=== PATIENT | female | born 1985 | race African-American/Black ===

== ENCOUNTER 2023-05-12 19:51 | Outpatient (REF) | payer OTHER, SELFPAY ==
[2023-05-18 15:08] LABS: Age Gdln ACOG Testing Note (.); HPV Aptima Negative (Negative); IGP, Aptima HPV, rfx 16/18,45 Note (.)
== END 2023-05-12 19:52 | disposition home or self-care (01) ==
LOC: LAB 19:51
PROVIDERS: Visit Provider Physician Assistant
DX: Z01.419 Encounter for gynecological examination (general) (routine) without abnormal findings (principal)
CPT/HCPCS: 87624; G0145

== ENCOUNTER 2024-05-17 18:57 | Outpatient (REF) | payer OTHER, SELFPAY ==
--- OUTSIDE RECORDS SUMMARY | 2024-05-17 19:00 | XMS_ITS | CCD ---
Author Organization [facility]iniSyn[facility] Care Team Providers Care Covered Button Maker Name Role Phone VITOR, DR MITCHELL Admitting Unavailable VITOR, DR MITCHELL Attending Unavailable VITOR, DR MITCHELL Primary Care Unavailable VITOR, DR MITCHELL Consulting Unavailable VITOR, DR MITCHELL Admitting Unavailable VITOR, DR MITCHELL Attending Unavailable VITOR, DR MITCHELL Primary Care Unavailable VITOR, DR MITCHELL Consulting Unavailable ZIEBER, DR ROLY Ramsay Consulting Unavailable VITOR, DR MITCHELL Admitting Unavailable VITOR, DR MITCHELL Attending Unavailable VITOR, DR MITCHELL Primary Care Unavailable VITOR, DR MITCHELL Consulting Unavailable VITOR, DR MITCHELL Admitting Unavailable VITOR, DR MITCHELL Attending Unavailable REQUEST, DR NONE LISTED Primary Care Unavaila ble VITOR, DR MITCHELL Admitting Unavailable VITOR, DR MITCHELL Attending Unavailable VITOR, DR MITCHELL Primary Care Unavailable VITOR, DR MITCHELL Consulting Unavailable VITOR, DR MITCHELL Admitting Unavailable VITOR, DR MITCHELL Attending Unavailable REQUEST, DR NONE LISTED Primary Care Unavaila ble VITOR, DR MITCHELL Consulting Unavailable AGUBOSIARMANDO Shen Consulting Unavailable BALWINDER CERVANTES Consulting Unavailable CHRISTIAN ARREOLA Attending Unavailable Silvio Nicholas Admitting Unavailable Silvio Nicholas Attending Unavailable Silvio Nicholas Primary Care Unavailable Cece Jean-Baptiste Primary Care Provide r Problems Active Problems Problem Classification Problem Date Documented Date Episodic/Chronic Anxiety disorders (1 source) Anxiety; Translations: [Anxiety disorder, unspecified] 03-22-2024 Chronic Immunizations and screening for infectious disease (2 sources) Encounter for screening for human papillomavirus (HPV); Translations: [Contact with and (suspected) exposure to infections with a predominantly sexual mode of transmission] Onset: 03-06-2022 Episodic Menstrual disorders (4 sources) Excessive and frequent menstruation with regular cycle; Translations: [EXCESS FREQ MENSTRUATION W/REG CYCL] Onset: 08-23-2021 Chronic Mood disorders (1 source) Depressive disorder; Translations: [Depression, unspecified depression type] 03-22-2024 Chronic Other female genital disorders (1 source) Other specified noninflammatory disorders of vagina; Translations: [OTH SPEC NONINFLAMMATORY D/O VAGINA] Onset: 03-06-2022 Episodic Other screening for suspected conditions (not mental disorders or infectious disease) (1 source) Abnormal findings on diagnostic imaging of other specified body structures; Translations: [ABNORML FIND DX IMG OTH BODY STRUC] Onset: 08-27-2021 Chronic Other screening for suspected conditions (not mental disorders or infectious disease) (4 sources) Encounter for screening for malignant neoplasm of cervix; Translations: [ENC SCREENING MALIG NEOPLASM CERV] Onset: 03-05-2022 Episodic Residual codes; unclassified (1 source) Insomnia; Translations: [Insomnia, unspecified] 03-22-2024 Episodic Unclassified (1 source) CONTACT W/AND (SUSP) EXPOS COVID-19; Translations: [CONTACT W/AND (SUSP) EXPOS COVID-19] Onset: 08-26-2021 Past or Other Problems Problem Classification Problem Date Documented Da te Episodic/Chronic Abdominal pain (5 sources) Pelvic and perineal pain; Translations: [PELVIC AND PERINEAL PAIN] Onset: 05-22-2021 Episodic Contraceptive and procreative management (1 source) Tubal ligation status; Translations: [TUBAL LIGATION STATUS] Onset: 08-27-2021 Episodic Mood disorders (1 source) Mood disorders Onset: 01-05-2023 01-05-2023 Other female genital disorders (1 source) Hypertrophy of uterus; Translations: [HYPERTROPHY OF UTERUS] Onset: 08-27-2021 Episodic Ovarian cyst (1 source) Unspecified ovarian cyst, left side; Translations: [UNSPECIFIED OVARIAN CYST LEFT SIDE] Onset: 05-30-2021 Episodic Unclassified (1 source) Onset: 01-05-2023 01-05-2023 Results Test Name Value Interpretation Reference Range Facility Lab - Toxicology Resultson 0 08-06-2023 Lab - Toxicology Results [id number]. [id number] Normal [facility] QuantiFERON-TB Gold Pluson 0 08-06-2023 QuantiFERON Incubation Incubation performed. Invalid Interpretation Code [facility] Comment on above: Result Comment: Perf ormed At: [address] [id number] Kg Rodriguez PhD Ph:[phone] Performed By: #### 2 [id number] #### [facility] (DEFAULT) [address] [place] [address] QuantiFERON-TB Gold Plus Negative Invalid Interpretation Code Negative [facility] Comment on above: Result Comment: No r esponse to M tuberculosis antigens detected. Infection with M tuberculosis is unlikely, but high risk individuals should be considered for additional testing (ATS/IDSA/CDC Clinical Practice Guidelines, 2017). The reference range is an Antigen minus Nil result of <0.35 IU/mL. Chemiluminescence immunoassay methodology Performed At: [address] [id number] Kg Rodriguez PhD Ph:[phone] Performed By: #### 2 [id number] #### [facility] (DEFAULT) [address] [place] [address] HBSab Qnt LCon 08-05-2023 Hep B Surf Ab Quant LC 117.2 mIU/mL Invalid Interpretation Code Immunity>9.[address] [facility] Comment on above: Result Comment: Stat us of Immunity Anti-HBs Level Inconsistent with Immunity 0.0 - 9.9 Consistent with Immunity >9.9 Performed At: [address] [id number] Kg Rodriguez PhD Ph:[phone] Performed By: #### 1 [id number] #### [facility] (DEFAULT) [address] [place] [address] Measles/Mumps/Rubella Immuni ty LCon 08-05-2023 Mumps Abs, IgG LC 61.5 AU/mL Invalid Interpretation Code Immune >10.[address] [facility] Comment on above: Result Comment: Nega tive <9.0 Equivocal 9.0 - 10.9 Positive >10.9 A positive result generally indicates past exposure to Mumps virus or previous vaccination. Performed At: [address] [id number] Kg Rodriguez PhD Ph:[phone] Performed By: #### 1 [id number] #### [facility] (DEFAULT) [address] [place] [address] Rubella Antibodies, IgG LC 1.88 index Invalid Interpretation Code Immune >0.[address] [facility] Comment on above: Result Comment: Non- immune <0.90 Equivocal 0.90 - 0.99 Immune >0.99 Performed By: #### 1 [id number] #### [facility] (DEFAULT) [address] [place] [address] Rubeola Ab, IgG, EIA LC 66.5 AU/mL Invalid Interpretation Code Immune >16.[address] [facility] Comment on above: Result Comment: Nega tive <13.5 Equivocal 13.5 - 16.4 Positive >16.4 Presence of antibodies to Rubeola is presumptive evidence of immunity except when acute infection is suspected. Performed By: #### 1 [id number] #### [facility] (DEFAULT) [address] [place] [address] Nicotine Metabolite, Urine L Con 08-05-2023 Cotinine LC Negative Invalid Interpretation Code Baeicz=[id number] [facility] Comment on above: Result Comment: Perf ormed At: [facility] OTS RTP [address] [facility], [place] [id number] Arie Rosales PhD Ph:[phone] Performed By: #### 1 [id number] #### [facility] (DEFAULT) [address] [place] [address] Triage Panel 10on 08-05-2023 Drug Screen Complete Collected Normal [facility] Comment on above: Performed By: #### 2 [id number] #### [facility] (DEFAULT) [address] [place] [address] Provider Orderson 08-04-2023 Provider Orders [id number] .[id number] [facility] PAP ACOG PANEL 2: 30 to 65on 03-12-2022 . . Normal [facility] Comment on above: Result Comment: Perf ormed at: BA Performed By: #### 4 [id number] #### [facility] [address] [address] [address] Nilay Blanton Age Gdln ACOG Testing 30-[address] [facility] Comment on above: Performed By: #### 4 [id number] #### [facility] [address] [address] [address] Nilay Blanton DIAGNOSIS: Comment Normal [facility] Comment on above: Result Comment: NEGA TIVE FOR INTRAEPITHELIAL LESION OR MALIGNANCY. Performed at: BA Performed By: #### 4 [id number] #### [facility] [address] [place] [address] Dr. Nilay Blanton HPV Aptima Negative Normal Negative [facility] Comment on above: Result Comment: This nucleic acid amplification test detects fourteen high-risk HPV types (16,18,31,33,35,39,45,51,52,56,58,59,66,68) without differentiation. Performed at: =G Performed By: #### 4 [id number] #### [facility] [address] [place] [address] Dr. Nilay Blanton Methodology: Comment Normal [facility] Comment on above: Result Comment: This liquid based ThinPrep(R) pap test was screened with the use of an image guided system. Performed at: WB Performed By: #### 4 [id number] #### [facility] [address] [address] [address] Nilay Blanton Note: Comment Normal [facility] Comment on above: Result Comment: The Pap smear is a screening test designed to aid in the detection of premalignant and malignant conditions of the uterine cervix. It is not a diagnostic procedure and should not be used as the sole means of detecting cervical cancer. Both false-positive and false-negative reports do occur. . Performed at: WB Performed By: #### 4 [id number] #### [facility] [address] [address] [address] Nilay Blanton Performed by: Comment Normal [facility] Comment on above: Result Comment: Clarissa Thompson, Respiratory Therapy Instructor (ASCP) Performed at: BA Performed By: #### 4 [id number] #### [facility] [address] [place] [address] Dr. Nilay Blanton Specimen adequacy: Comment Normal [facility] Comment on above: Result Comment: Sati sfactory for evaluation. No endocervical component is identified. Performed at: BA Performed By: #### 4 [id number] #### [facility] [address] [address] [address] Nilay Blanton CHLAMYDIA/GONOCOCCUS JONN ( AB/URINE/PAPon 03-07-2022 Chlamydia trachomatis, JONN Negative Normal Negative [facility] Comment on above: Performed By: #### C T/NGNA ####[facility] [id number] [address]Dr. Nilay Blanton Neisseria gonorrhoeae, JONN Negative Normal Negative [facility] Comment on above: Performed By: #### C T/NGNA ####[facility] [id number] [address]Dr. Nilay Blanton VAGINITIS/VAGINOSIS DNA PROB Erick 03-07-2022 Renetta species Negative Normal Negative [facility] Comment on above: Performed By: #### V AGINT #### [facility] [address] [place] [address] Dr. Nilay Blanton Gardnerella vaginalis Positive Abnormal Negative [facility] Comment on above: Performed By: #### V AGINT #### [facility] [address] [place] [address] Dr. Nilay Blanton Trichomonas vaginalis Negative Normal Negative [facility] Comment on above: Performed By: #### V AGINT #### [facility] [address] [place] [address] Dr. Nilay Blanton CBC AUTO DIFFon 08-23-2021 BASO # 0.0 103/ul Normal 0.0-0.[address] [facility] Comment on above: Performed By: #### C BC #### [facility] [address] [place] [address] Dr. Nilay Blanton Basophils/100 WBC (Bld) 0.4 % Normal 0.2-2.[address] [facility] Comment on above: Performed By: #### C BC #### [facility] [address] [place] [address] Dr. Nilay Blanton EO # 0.1 103/ul Normal 0.0-0.7 [facility] Comment on above: Performed By: #### C BC #### [facility] [address] [place] [address] Dr. Nilay Blanton Eosinophils/100 WBC (Bld) 2.3 % Normal 0.9-7.[address] [facility] Comment on above: Performed By: #### C BC #### [facility] [address] [place] [address] Dr. Nilay Blanton Erythrocyte distribution width (RBC) [Ratio] 14.1 % Normal 11.0-15.[address] [facility] Comment on above: Performed By: #### C BC #### [facility] [address] [place] [address] Dr. Nilay Blanton Hematocrit (Bld) [Volume fraction] 37.7 % Normal 36.0-48.[address] [facility] Comment on above: Performed By: #### C BC #### [facility] [address] [place] [address] Dr. Nilay Blanton Hemoglobin (Bld) [Mass/Vol] 12.1 g/dL Normal 12.0-16.[address] [facility] Comment on above: Performed By: #### C BC #### [facility] [address] [place] [address] Dr. Nilay Blanton IG # 0.01 10e3/ul Normal 0.00-0.[address] [facility] Comment on above: Performed By: #### C BC #### [facility] [address] [place] [address] Dr. Nilay Blanton IG % 0.2 % Normal 0.0-0.5 [facility] Comment on above: Performed By: #### C BC #### [facility] [address] [place] [address] Dr. Nilay Blanton LYMPH # 1.6 103/ul Normal 1.2-3.[address] [facility] Comment on above: Performed By: #### C BC #### [facility] [address] [place] [address] Dr. Nilay Blanton Lymphocytes/100 WBC (Bld) 31.0 % Normal 20.5-60.[address] [facility] Comment on above: Performed By: #### C BC #### [facility] [address] [place] [address] Dr. Nilay Blanton MANUAL DIFF REQ NO Normal [facility] Comment on above: Performed By: #### C BC #### [facility] [address] [place] [address] Dr. Nilay Blanton MCH (RBC) [Entitic mass] 26.9 pg Normal 26.7-34.[address] [facility] Comment on above: Performed By: #### C BC #### [facility] [address] [place] [address] Dr. Nilay Blanton MCHC (RBC) [Mass/Vol] 32.1 g/dL Normal 29.9-35.[address] [facility] Comment on above: Performed By: #### C BC #### [facility] [address] [place] [address] Dr. Nilay Blanton MCV (RBC) [Entitic vol] 84.0 fL Normal 81.0-99.[address] [facility] Comment on above: Performed By: #### C BC #### [facility] [address] [place] [address] Dr. Nilay Blanton MONO # 0.3 103/ul Normal 0.3-0.8 [facility] Comment on above: Performed By: #### C BC #### [facility] [address] [place] [address] Dr. Nilay Blanton Monocytes/100 WBC (Bld) 5.2 % Normal 1.7-12.[address] [facility] Comment on above: Performed By: #### C BC #### [facility] [address] [place] [address] Dr. Nilay Blanton NEUT # 3.2 103/ul Normal 1.4-6.5 [facility] Comment on above: Performed By: #### C BC #### [facility] [address] [place] [address] Dr. Nilay Blanton Neutrophils/100 WBC (Bld) 60.9 % Normal 43.0-75.[address] [facility] Comment on above: Performed By: #### C BC #### [facility] [address] [place] [address] Dr. Nilay Blanton Platelet mean volume (Bld) [Entitic vol] 11.4 fL Normal 9.5-13.5 [facility] Comment on above: Performed By: #### C BC #### [facility] [address] [place] [address] Dr. Nilay Blanton PLT 201 103/ul Normal 150-450 [facility] Comment on above: Performed By: #### C BC #### [facility] [address] [place] [address] Dr. Nilay Blanton RBC 4.49 106/ul Normal 4.20-5.[address] [facility] Comment on above: Performed By: #### C BC #### [facility] [address] [place] [address] Dr. Nilay Blanton WBC 5.2 103/ul Normal 4.0-11.[address] [facility] Comment on above: Performed By: #### C BC #### [facility] [address] [place] [address] Dr. Nilay Blanton PREG QUANT HCGon 08-23-2021 HCG QUANT <1 Normal [facility] Comment on above: Performed By: #### P REGQNT #### [facility] [address] [place] [address] Dr. Nilay Blanton HCG RANGE SEE BELOW Normal [facility] Comment on above: Result Comment: 5-50 0-1 WEEK 40-300 1-2 WEEKS 100-1,000 2-3 WEEKS 500-6,000 3-4 WEEKS 5,000-200,000 1-2 MONTHS 10,000-100,000 2-3 MONTHS 3,000-50,000 2ND TRIMESTER 1,000-50,000 3RD TRIMESTER Performed By: #### P REGQNT #### [facility] [address] [place], [place] [id number] Dr. Nilay Blanton Covid-19 PCR ([facility])on 07-31 SARS-CoV-2 (COVID-19) RNA JONN+probe Ql (Unsp spec) Not detected Normal NOT DETECTED [facility] Comment on above: Result Comment: When diagnostic testing is negative, the possibility of a false negative should be considered in the context of a patient's recent exposures and the presence of clinical signs and symptoms consistent with SARS-CoV-2. This test is not yet approved or cleared by the [place] FDA. When there are no FDA-approved or cleared tests available, and other criteria are met, FDA can make tests available under an emergency access mechanism called an Emergency Use Authorization (EUA). The EUA for this test is supported by the Rubber Attacher of Health and Human Service's declaration that circumstances exist to justify the emergency use of in vitro diagnostics for the detection and/or diagnosis of the virus that causes COVID-19. This EUA will remain in effect for the duration of the COVID-19 declaration justifying emergency of IVDs, unless it is terminated or revoked by the FDA (after which the test may no longer be used). Performed By: #### [facility] #### [facility] [address] [place] [address] [address] [address] Nilay Blanton US PELVIS AND TRANSVAGon US PELVIS AND TRANSVAG EXAMINATION: US PELVIS AND TRANSVAG HISTORY: Pelvic and perineal pain intermittent for several months COMPARISON: No relevant comparison available. TECHNIQUE: Transabdominal and transvaginal sonographic examination. FINDINGS: UTERUS: Normal size and appearance. Uterus size: 12.1 x 7.1 x 5.9 cm ENDOMETRIUM: Mildly thickened but homogeneous. Endometrial thickness: 16 mm RIGHT OVARY: Normal size and appearance. Duplex Doppler demonstrates normal waveform and flow; resistive index 0.45. Ovary size: 3.0 x 2.4 x 1.6 cm LEFT OVARY: Contains a 2.0 cm benign-appearing stable cyst. Duplex Doppler demonstrates normal waveform and flow; resistive index 0.58. Ovary size: 3.8 x 3.6 x 2.5 cm CUL-DE-SAC: Unremarkable. No significant free fluid. BLADDER: Unremarkable. OTHER: Prominent left periuterine vessels without thrombosis. IMPRESSION: 1. Mildly thickened but otherwise homogeneous endometrium; endometrial hyperplasia? 2. Benign-appearing 2.0 cm left ovarian cyst which may contribute to patient's symptoms. 3. Prominent left periuterine vessels; incidental versus pelvic congestion. Electronically authenticated by: ROLY PINTO Date: 2021-05-22 15:[address] [facility] CHLAMYDIA/GONOCOCCUS JONN (SW AB/URINE/PAPon 05-02-2021 Chlamydia trachomatis, JONN Negative Normal Negative [facility] Comment on above: Performed By: #### C T/NGNA #### [facility] [address] [place] [address] Dr. Nilay Blanton Neisseria gonorrhoeae, JONN Negative Normal Negative [facility] Comment on above: Performed By: #### C T/NGNA #### [facility] [address] [address] [address] Nilay Blanton PAP ACOG PANEL 2: 30 to 65on 05-02-2021 . . Normal [facility] Comment on above: Result Comment: Perf ormed at: WB Performed By: #### 4 [id number] #### [facility] [address] [place] [address] Dr. Nilay Blanton Age Gdln ACOG Testing 30-[address] [facility] Comment on above: Performed By: #### 4 [id number] #### [facility] [address] [address] [address] Nilay Blanton DIAGNOSIS: Comment Normal [facility] Comment on above: Result Comment: NEGA TIVE FOR INTRAEPITHELIAL LESION OR MALIGNANCY. SHIFT IN MELCHOR SUGGESTIVE OF BACTERIAL VAGINOSIS. Performed at: WB Performed By: #### 4 [id number] #### [facility] [address] [place] [address] Dr. Nilay Blanton HPV Aptima Negative Normal Negative [facility] Comment on above: Result Comment: This nucleic acid amplification test detects fourteen high-risk HPV types (16,18,31,33,35,39,45,51,52,56,58,59,66,68) without differentiation. Performed at: =G Performed By: #### 4 [id number] #### [facility] [address] [place] [address] Dr. Nilay Blanton Methodology: Comment Normal [facility] Comment on above: Result Comment: This liquid based ThinPrep(R) pap test was screened with the use of an image guided system. Performed at: WB Performed By: #### 4 [id number] #### [facility] [address] [place] [address] Dr. Nilay Blanton Note: Comment Normal [facility] Comment on above: Result Comment: The Pap smear is a screening test designed to aid in the detection of premalignant and malignant conditions of the uterine cervix. It is not a diagnostic procedure and should not be used as the sole means of detecting cervical cancer. Both false-positive and false-negative reports do occur. . Performed at: WB Performed By: #### 4 [id number] #### [facility] [address] [place] [address] Dr. Nilay Blanton Performed by: Comment Normal [facility] Comment on above: Result Comment: Hodan Hughes Respiratory Therapy Instructor (ASCP) Performed at: WB Performed By: #### 4 [id number] #### [facility] [address] [place] [address] Dr. Nilay Blanton Specimen adequacy: Comment Normal [facility] Comment on above: Result Comment: Sati sfactory for evaluation. No endocervical component is identified. Performed at: WB Performed By: #### 4 [id number] #### [facility] [address] [place] [address] Dr. Nilay Blanton VAGINITIS/VAGINOSIS DNA PROB Erick 05-01-2021 Renetta species Negative Normal Negative [facility] Comment on above: Performed By: #### V AGINT #### [facility] [address] [place] [address] Dr. Nilay Blanton Gardnerella vaginalis Positive Abnormal Negative [facility] Comment on above: Performed By: #### V AGINT #### [facility] [address] [address] [address] Nilay Blanton Trichomonas vaginalis Negative Normal Negative [facility] Comment on above: Performed By: #### V AGINT #### [facility] [address] [place], [place] [id number] Dr. Nilay Blanton Vital Signs Date Time Vital Sign Value Performing Clinician Laron johnson 03-22-2024 14:32-0400 Body mass index (BMI) [Ratio] 28.19 kg/m2 Cece Regan LINE SERVICER-DRAW OFF WORKER Work Phone: [employer] 03-22-2024 14:32-0400 Body weight 78.02 kg Cece Selinakris LINE SERVICER-DRAW OFF WORKER Work Phone: [facility] 03-22-2024 14:32-0400 Diastolic blood pressure 68 mm[Hg] Cece Shereen LINE SERVICER-DRAW OFF WORKER Work Phone: [employer] 03-22-2024 14:32-0400 Heart rate 74 /min Cece Regan LINE SERVICER-DRAW OFF WORKER Work Phone: [facility] 03-22-2024 14:32-0400 Respiratory rate 16 /min Cece Selinakris LINE SERVICER-DRAW OFF WORKER Work Phone: [employer] 03-22-2024 14:32-0400 SaO2% (BldA) [Mass fraction] 99 % Cece Regan LINE SERVICER-DRAW OFF WORKER Work Phone: [employer] 03-22-2024 14:32-0400 Systolic blood pressure 120 mm[Hg] Cece Regan LINE SERVICER-DRAW OFF WORKER Work Phone: [employer] Encounters Encounter Date Encounter Type Care Provider Facility Start: 03-22-2024 End: 03-22-2024 Office outpatient visit 15 minutes Cece Regan LINE SERVICER-DRAW OFF WORKER Work Phone: [facility] Comment on above: Anxiety (Primary Dx) ; Depression, unspecified depression type; Insomnia, unspecified type Start: 08-04-2023 End: 08-05-2023 ambulatory Silvio Nicholas Facility:[facility] Start: 05-12-2023 End: 05-12-2023 ambulatory CHRISTIAN ARREOLA Not Available Start: 03-05-2022 End: 03-05-[address] PAULA LAZAR Facility:[facility] Start: 08-26-2021 Encounter for preprocedural laboratory examination DR PAULA LAZAR [facility] Start: 08-23-2021 End: 08-23-[address] PAULA LAZAR Facility:[facility] Start: 08-21-2021 End: 08-22-[address] PAULA LAZAR Facility:[facility] Start: 08-21-2021 End: 08-22-2021 Encounter for preprocedural laboratory examination DR PAULA LAZAR Facility:[facility] Start: 08-12-2021 Encounter for other preprocedural examination DR PAULA LAZAR [facility] Start: 08-09-2021 End: 08-10-[address] PAULA LAZAR Facility:[facility] Start: 08-09-2021 End: 08-10-2021 Encounter for other preprocedural examination DR PAULA LAZAR Facility:[facility] Start: 05-22-2021 End: 05-23-[address] PAULA LAZAR Facility:[facility] Start: 04-29-2021 End: 04-29-[address] PAULA LAZAR Facility:[facility] Procedures Date Procedure Procedure Detail Performing Clinician Start: 01-05-2023 Adult depression screening assessment Cece Regan LINE SERVICER-DRAW OFF WORKER Work Phone: Plan of Treatment Date Care Activity Detail Author Start: 03-22-2025 Tobacco Screening Tobacco Screening [facility] Start: 12-08-2024 Adult BMI Screening Adult BMI Screen ing [facility] Start: 01-31-2024 Influenza vaccination Influenza Vacc ine [facility] Start: 01-06-2024 Depression Screening Depression Scre ening [facility] Start: 10-25-2020 COVID-19 Vaccine (3 - Pfizer risk series) COVID-19 Vaccine (3 - Pfizer risk series) [facility] Start: 2006 Screening for malign ant neoplasm of cervix Pap Smear [facility] [employer] [facility] Start: 2004 DTaP,Tdap and Td Vaccines (1 - Tdap) DTaP,Tdap and Td Vaccines (1 - Tdap) [facility] Payers Date Payer Category Payer Unknown [id number] 1985 Unknown [id number] 2.16.84 [id number] 1985 Unknown [id number] 2.16.84 [id number] 1985 Unknown [id number] 2.16.84 [id number] 1985 Unknown [id number] 2.16.84 [id number] 1985 Unknown [id number] 2.16.84 [id number] 1985 Unknown [id number] 2.16.84 [id number] 1985 Unknown [id number] 1959 Unknown [id number] Social History Date Type Detail Facility Start: 03-31-2022 Tobacco smoking stat [facility] Never smoked tobacco [facility] Start: 03-31-2022 Tobacco use and exposure Smokeless tobacco non-user [facility] Start: 03-22-2024 Alcoholic beverage intake Current drinker of alcohol (finding) [facility] Start: 07-12-2020 End: 03-22-2024 History of Social function [facility] Start: 07-12-2020 End: 03-22-2024 Tobacco use panel [facility] Adolescent depressio n screening assessment 11 [facility] Start: 03-20-2020 Alcohol Comment socially [facility] Start: 1985 Sex assigned at Not on file P [facility] Start: 01-04-2015 Sex Female (finding) [facility] History of Present illness Narrative 03-22-2024 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 [address] [place] [id number] SUBJECTIVE: Patient ID: Radha Saavedra is a 38 y.o. female. Patient presents to the office for complaints of anxiety, depression, insomnia. 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 She is not sleeping and is almost falling asleep on the drive home. She is having a lot of stress and forgetting to do things that normally would not be an issue. She is having a hard time staying on task and completeing normal job responsibility and things at home. Will fill out accomodation paperwork due to severity of symptoms if they can help her get on a different shift. Stress Pertinent negatives include no abdominal pain, arthralgias, chest pain, congestion, coughing, fatigue, fever, joint swelling, nausea, neck pain, numbness, rash, sore throat, vomiting or weakness. The following portions of the patient's history were reviewed and updated as appropriate: allergies, current medications, past family history, past medical history, past social history, past surgical history and problem list. REVIEW OF SYSTEMS: Review of Systems Constitutional: Negative for fatigue, fever and unexpected weight change. HENT: Negative for congestion, ear pain, sinus pressure, sinus pain and sore throat. Eyes: Negative for photophobia, pain, discharge and visual disturbance. Respiratory: Negative for cough and shortness of breath. Cardiovascular: Negative for chest pain, palpitations and leg swelling. Gastrointestinal: Negative for abdominal pain, diarrhea, nausea and vomiting. Endocrine: Negative for polydipsia, polyphagia and polyuria. Genitourinary: Negative for difficulty urinating, frequency, hematuria and urgency. Musculoskeletal: Negative for arthralgias, gait problem, joint swelling and neck pain. Skin: Negative for pallor and rash. Neurological: Negative for dizziness, weakness, light-headedness and numbness. Psychiatric/Behavioral: Positive for sleep disturbance. The patient is nervous/anxious. PHYSICAL EXAMINATION: Vitals: 03/22/24 1432 BP: 120/68 Pulse: 74 Resp: 16 SpO2: 99% Weight: 78 kg (172 lb) Physical Exam Constitutional: Appearance: She is well-developed. HENT: Head: Normocephalic and atraumatic. Right Ear: External ear normal. Left Ear: External ear normal. Eyes: Conjunctiva/sclera: Conjunctivae normal. Pupils: Pupils are equal, round, and reactive to light. Cardiovascular: Rate and Rhythm: Normal rate and regular rhythm. Heart sounds: Normal heart sounds. Pulmonary: Effort: Pulmonary effort is normal. Breath sounds: Normal breath sounds. Musculoskeletal: Cervical back: Normal range of motion. Skin: General: Skin is warm and dry. Neurological: Mental Status: She is alert and oriented to person, place, and time. Psychiatric: Mood and Affect: Mood normal. ASSESSMENT/PLAN: Radha was seen today for stress. Diagnoses and all orders for this visit: Anxiety Depression, unspecified depression type Insomnia, unspecified type Follow-up: Will fill out accomodation paperwork Keep routine appointments [facility] 03/22/24 1501 documented in this encounter [facility] Clinical Note 08-23-2021 Note Date & Type Note Facility 08-23-2021 Note OPERATIVE NOTE PROCEDURE: Gabriella endometrial ablation. PREOPERATIVE DIAGNOSIS: Menorrhagia. POSTOPERATIVE DIAGNOSIS: Menorrhagia. ANESTHESIA: General. SURGEON: Paula Lazar D.O. HEADING AND PRIMING OPERATOR: None. FINDINGS: Normal appearing endometrium, both ostia seen. No gross of evidence of polyps, fibroids or malignancy. BLOOD LOSS: 5 mL. URINE OUTPUT: Yellow and clear. SPECIMENS: None. PROCEDURE: The patient was taken back to the OR where she was prepped and draped in the normal sterile fashion after being placed in the dorsal lithotomy position, after being placed under general anesthesia without difficulty. The anterior lip was grasped with a single tooth tenaculum. The patient was then gently sounds. The patient was gently sounded using Hegar dilators and the hysteroscope was passed through the cervix into the uterus where both ostia were seen. No gross evidence of polyps, fibroids or malignancy. A weighted speculum was placed in the patient's vagina, the anterior tip of the cervix was identified and grasped with a single tooth tenaculum. The patient was gently sounded to roughly 10 cm. The cervical length was noted to be 5 cm. The Gabriella ablation apparatus was set to approximately 5 in length. This was placed in through the cervix and into the uterus. After the seal was tested, at that time the total ablation of 120 seconds was performed with the Gabriella without difficulty. All instruments were removed from the vagina. [facility] Signed and Approved by: DR PAULA LAZAR . 08/26/2021 22:02:00 [facility] Evaluation note Note Date & Type Note Facility Evaluation note Diagnosis Anxiety- Primary Anxiety state, unspecified Depression, unspecified depression type Insomnia, unspecified type documented in this encounter [facility] Instructions Attachments Note Date & Type Note Facility Instructions The following attachments cannot be sent through Care Everywhere.Anxiety Discharge Instructions, Adult ([place])documented in this encounter [facility] Summary Purpose Family History No Family History Records FoundNo Family History Records FoundNo Family History Records Found Advance Directives No Advanced Directives Records FoundNo Advanced Directives Records FoundNo Advanced Directives Records Found Additional Source Comments INFORMATION SOURCE (unrecogn ized section and content) DATE CREATED AUTHOR 03/12/2022 [facility] DATE CREATED AUTHOR AUTHOR'S ORGANIZ ATION 05/14/2023 [facility] EPIC DATE CREATED AUTHOR AUTHOR'S ORGANIZ ATION 08/07/2023 [facility] Reason for Visit (unrecogniz ed section and content) Reason Comments Stress Care Teams (unrecognized sec tion and content) Covered Button Maker Relationship Specialty Start Date End Date Cece Regan, OSOR[place]IVER[address] [place] [address] PCP - General Family Medicine 03/21/20 FOR RECORDS PERTAINING TO PATIENTS WHO ARE OR HAVE BEEN ENROLLED IN A CHEMICAL DEPENDENCY/SUBSTANCEABUSE PROGRAM, SOME INFORMATION MAY BE OMITTED. This clinical summary was aggregated from multiple sources. Caution should be exercised in using it in the provision of clinical care. This summary normalizes information from multiple sources, and as a consequence, information in this document may materially change the coding, format and clinical context of patient data. In addition, data may be omitted in some cases. CLINICAL DECISIONS SHOULD BE BASED ON THE PRIMARY CLINICAL RECORDS. [facility] [employer] [facility]. provides no warranty or guarantee of the accuracy or completeness of information in this document.
[2024-05-26 15:07] LABS: Age Gdln ACOG Testing Note (.); HPV Aptima Negative (Negative); IGP, Aptima HPV, rfx 16/18,45 Note (.)
== END 2024-05-17 18:58 | disposition home or self-care (01) ==
LOC: LAB 18:57
PROVIDERS: Visit Provider Physician Assistant
DX: Z01.419 Encounter for gynecological examination (general) (routine) without abnormal findings (principal)
CPT/HCPCS: 87624; 88175